=== PATIENT | female | born 1980 | race Caucasian/White ===

== ENCOUNTER → 2016-11-09 | Outpatient (CLI) | payer OTHER ==
--- NOTE | 2016-11-09 21:52 | US ---
EXAMINATION TYPE: US transvaginal DATE OF EXAM: 11/09/2016 3:39 PM COMPARISON: NONE CLINICAL HISTORY: 36-year-old female E28.2 Polycystic Ovaries. Date of LMP: 10/14/16 TECHNIQUE: Multiple Transvaginal (TV) sonographic images of the pelvis were obtained. FINDINGS: Uterus: Anteverted measuring 4.8 x 2.8 x 4.5 cm with a 1.1 x 0.7 cm ovoid hypoechoic lesion along th e posterior uterine body, intramural and partially subserosal. Endometrial Stripe: 0.3 cm, within normal limits. Right Ovary: unable to visualize Left Ovary: unable to visualize No evident adnexal abnormality or cul-de-sac free fluid. IMPRESSION: 1. Neither ovary could be visualized. If characterization of ovarian morphology is desired, consider a follow-up ultrasound exam at which time, the ovaries may become visible or alternatively, a female pelvic MRI. 2. Suspect a 1.1 cm oval fibroid along the posterior uterine body.
== END | disposition home or self-care (01) ==
LOC: RADUSWWP 15:19
PROVIDERS: ATTEND Family Medicine
DX: E28.2 Polycystic ovarian syndrome (principal)
CPT/HCPCS: 76830

== ENCOUNTER 2016-11-19 07:57 | Day surgery (SDC) | payer OTHER ==
[2016-11-17 09:31] VITALS: BMI 36.2
[~2016-11-19 07:57] MED LIST: LACTATED RINGERS 1,000 ML IV SCH
[2016-11-19 08:17] VITALS: PULSE 65; RESP 16; TEMP 97.3
[2016-11-19 08:22] LABS: Glucose,Whole Blood 78 mg/dL (75-99)
[2016-11-19] MEDS ORDERED: PROPOFOL 10 MG/ML 20 ML VIAL IV ONE (08:26)
[2016-11-19] MEDS ORDERED: LIDOCAINE 1% INJ 10MG/ML (20 ML MDV) ONE (08:26)
--- NOTE | 2016-11-19 09:04 | P.PCN ---
Date of Procedure: 11/19/16 Procedure(s) Performed: Procedures: 1. Esophagogastroduodenoscopy and biopsy. 2. Total colonoscopy. Preoperative diagnosis: Change in bowel habits and chronic reflux symptoms. Postoperative diagnosis: Mild antral gastritis. Normal colon exam. Preparation: HalfLytely prep. Sedation: Was provided by anesthesia. Brief clinical history: The patient is a 56-year-old female who is referred for this evaluation because of issues with constipation and chronic reflux. This evaluation is to assess for complicated reflux disease or colon pathology. Procedure: With the patient on her left lateral decubitus position and after informed consent and adequate sedation, I passed the Olympus-GIF 160 video upper endoscope through the cricopharyngeus down the esophagus. GE junction was around 36 cm from the incisors and there was no definite hiatal hernia. There was no obvious esophagitis or complicated reflux disease. The endoscope was then passed into the stomach which was insufflated with air and inspected in detail including the retroflex view in the cardia. There was some mottling and erythema in the antrum but no ulcers or erosions. Pyloric channel, duodenal bulb, post bulbar area and descending duodenum appeared within normal limits. Because of her symptoms I obtained biopsies from the duodenum, antrum and esophagus then the endoscope was withdrawn and I then proceeded to do colonoscopy. Perianal area did not show any fissures or fistulas. There were no masses felt on digital rectal examination. The Olympus CFQ 160L video colonoscope was then inserted in the rectum in the usual fashion and advanced to the cecum. The preparation was less than ideal but there was no obvious pathology noted. The mucosa appeared healthy. I retroflexed endoscope in the rectum before the endoscope was withdrawn. The patient tolerated the procedure well. Plan: The patient was reassured. Will await biopsy results. Discussed dietary measures. Further plans can be made based on her course and pathology results. She will follow-up with you as planned.
[2016-11-19 09:32] VITALS: BP 115/83
== END 2016-11-19 09:50 | disposition home or self-care (01) ==
LOC: ORWHC2ENDO 07:57
DX: K29.50 Unspecified chronic gastritis without bleeding (principal); K21.0 Gastro-esophageal reflux disease with esophagitis; K59.00 Constipation, unspecified; J45.909 Unspecified asthma, uncomplicated; F17.200 Nicotine dependence, unspecified, uncomplicated; F39 Unspecified mood [affective] disorder; Z79.899 Other long term (current) drug therapy; Z88.5 Allergy status to narcotic agent
CPT/HCPCS: 81025; 88305; 88342; 45378; 43239; J2001; J2704; 99153

== ENCOUNTER → 2016-11-20 | Outpatient (CLI) | payer OTHER ==
--- NOTE | 2016-11-20 18:45 | ECHOF ---
Referral Reason:R01.1 Heart Murmur MEASUREMENTS -------- HEIGHT: 161.3 cm WEIGHT: 95.7 kg BP: 135/86 RVIDd: 2.4 cm (< 3.3) IVSd: 0.9 cm (0.6 - 1.1) LVIDd: 4.1 cm (3.9 - 5.3) LVPWd: 1.0 cm (0.6 - 1.1) IVSs: 1.4 cm LVIDs: 2.7 cm LVPWs: 1.5 cm LA Diam: 2.8 cm (2.7 - 3.8) LAESV Index (A-L): 20.13 ml/m Ao Diam: 2.9 cm (2.0 - 3.7) AV Cusp: 2.1 cm (1.5 - 2.6) MV EXCURSION: 19.002 mm (> 18.000) MV EF SLOPE: 137 mm/s (70 - 150) EPSS: 0.4 cm MV E Denys: 0.73 m/s MV DecT: 328 ms MV A Denys: 0.55 m/s MV E/A Ratio: 1.34 RAP: 5.00 mmHg RVSP: 27.16 mmHg FINDINGS -------- Sinus rhythm. This was a technically good study. The left ventricular size is normal. Left ventricular wall thickness is normal. Overall left ventricular systolic function is normal with, an EF between 60 - 65 %. The right ventricle is normal in size. The left atrium is normal in size. Normal LA size by volume 22+/-6 ml/m2. The right atrium is normal in size. The aortic valve is trileaflet and appears structurally normal. There is trace mitral regurgitation. Mild tricuspid regurgitation present. Right ventricular systolic pressure is normal at < 35 mmHg. The pulmonic valve is normal. There is no pulmonic regurgitation present. The aortic root size is normal. Normal inferior vena cava with normal inspiratory collapse consistent with estimated right atrial pressure of 5 mmHg. There is no pericardial effusion. CONCLUSIONS -------- 1. Sinus rhythm. 2. There is trace mitral regurgitation. 3. Mild tricuspid regurgitation present. 4. Right ventricular systolic pressure is normal at < 35 mmHg. 5. The aortic root size is normal. 6. Normal inferior vena cava with normal inspiratory collapse consistent with estimated right atrial pressure of 5 mmHg. 7. There is no pericardial effusion. 8. This was a technically good study. 9. The left ventricular size is normal. 10. Left ventricular wall thickness is normal. 11. Overall left ventricular systolic function is normal with, an EF between 60 - 65 %. 12. The right ventricle is normal in size. 13. Normal LA size by volume 22+/-6 ml/m2. 14. The right atrium is normal in size. 15. The aortic valve is trileaflet and appears structurally normal. AUDIO VISUAL MANAGER: Noa Schaefer RDCS
== END | disposition home or self-care (01) ==
LOC: RADECHMAIN 14:59
PROVIDERS: ATTEND Family Medicine
DX: I08.1 Rheumatic disorders of both mitral and tricuspid valves (principal)
CPT/HCPCS: 93306

== ENCOUNTER → 2017-02-19 | Outpatient (CLI) | payer OTHER ==
--- NOTE | 2017-02-19 18:13 | CT ---
EXAMINATION TYPE: CT brain wo con DATE OF EXAM: 02/19/2017 6:01 PM COMPARISON: 02/27/2013 HISTORY: Headaches x 1 year +. CT DLP: 1001.00 mGycm Automated exposure control for dose reduction was used. FINDINGS: The ventricles and sulci appear normal. There is no mass effect nor midline shift. There is no sign o f intracranial hemorrhage. The calvarium is intact. There is incomplete pneumatization of the mastoid air cells. IMPRESSION: Negative unenhanced head CT scan. No change. Incomplete mastoid pneumatization could relate to chroni c inflammation.
== END | disposition home or self-care (01) ==
LOC: RADCTMAIN 17:32
PROVIDERS: ATTEND Family Medicine
DX: H74.8X9 Other specified disorders of middle ear and mastoid, unspecified ear (principal); R51 Headache
CPT/HCPCS: 70450

== ENCOUNTER → 2018-01-17 | Outpatient (CLI) | payer OTHER ==
--- NOTE | 2018-01-17 21:47 | MR ---
EXAMINATION TYPE: MR cervical spine wo con DATE OF EXAM: 01/17/2018 COMPARISON: NONE HISTORY: 37-year-old female Headaches, neck pain, right upper extremity radiculopathy for years, no t rauma/surgery TECHNIQUE: Multiplanar, multisequence images of the cervical spine were acquired. FINDINGS: No craniocervical junction abnormality, predental space widening, or prevertebral soft tissue swellin g. Reversal of the normal cervical lordosis along the upper cervical spine with preserved alignment. No suspicious bone marrow replacement. Variable mild intervertebral disc desiccation throughout with mild disc bulging and scattered mild fa cet degenerative change. At C2-C3, there is mild facet degenerative change without canal or foraminal stenosis. At C3-C4, there is mild facet degenerative change without canal or foraminal stenosis. At C4-C5, there is mild facet degenerative change and minimal posterior disc bulge. No significant ca nal or foraminal stenosis. At C5-C6, minimal posterior disc bulge and mild facet degenerative change. No significant canal or fo raminal stenosis. At C6-C7, minimal broad-based discussed by complex mild uncovertebral joint arthropathy. No significa nt canal or foraminal stenosis. At C7-T1, no canal or foraminal stenosis. Minimal prominence to the central canal at 1.3 mm especially at the C5 down to C6 levels is within ac ceptable limits. Otherwise, normal T2-weighted cord signal. No prevertebral or paravertebral soft tissue abnormality. IMPRESSION: 1. Early degenerative disc disease characterized by variable mild intervertebral disc desiccation and minimal posterior disc bulges. 2. Additional scattered mild facet arthropathy. Minimal uncovertebral joint arthropathy mid to lower cervical spine. 3. No focal disc herniation or significant spinal canal or neuroforaminal stenosis.
== END | disposition home or self-care (01) ==
LOC: RADMRIMAIN 18:36
PROVIDERS: ATTEND Family Medicine
DX: M50.121 Cervical disc disorder at C4-C5 level with radiculopathy (principal); M46.82 Other specified inflammatory spondylopathies, cervical region
CPT/HCPCS: 72141